=== PATIENT | female | born 1955 | race Caucasian/White ===

== ENCOUNTER 2017-02-09 16:21 | Emergency (ER) | payer BC, OTHER ==
--- NOTE | 2017-02-09 16:24 | PDOC ---
History of Present Illness - General History Source: Patient Exam Limitations: No Limitations - History of Present Illness Initial Comments: 02/09/17 17:15 The patient is a 61 year old female, with significant past medical history of irritable bowel syndrome, anxiety, and depression, who presents to the emergency room complaining of 1 day of palpitations, and diarrhea and lower abdominal cramping x 1 month. She explains that her mother 1 month ago and has been having an IBS flare up since the day after her . She has been experiencing multiple episodes of diarrhea each day and increased abdominal discomfort over the past couple of days. Her bundle helper prescribed lomotil and attributes the flare up to stress. She noticed the palpitations start this morning while laying out in the sun but was not sure if it was anxiety. Denies SOB, chest pain. Denies fever, chills, nausea, vomiting. Denies black, tarry, or blood in the stool. Denies urinary changes. Allergies: penicillins, sulfa, epinephrine PCP: Dr. Percy Herrera ([facility] ) <Ashley Valles - Last Filed: 02/09/17 17:15> <Sulma Delvalle - Last Filed: 02/09/17 18:19> - General Chief Complaint: Diarrhea Stated Complaint: DIARRHEA Time Seen by Provider: 02/09/17 16:24 Past History <Ashley Valles - Last Filed: 02/09/17 17:15> - Past Medical History GI Disorders: Yes (IBS) Liver Disease: Yes (ANX/DEP) - Immunization History Immunization Up to Date: Yes - Psycho/Social/Smoking Cessation Hx Anxiety: Yes Suicidal Ideation: No Smoking Status: Yes Smoking History: Former smoker Years of Tobacco Use: 40 Number of Cigarettes Smoked Daily: 0 Cigars Per Day: 0 <Sulma Delvalle - Last Filed: 02/09/17 18:19> - Past Medical History Allergies/Adverse Reactions: Allergies Allergy/AdvReac Type Severity Reaction Status Date / Time Penicillins Allergy Mild Hives Verified 02/09/17 16:23 Sulfa (Sulfonamide Allergy Mild Hives Verified 02/09/17 16:23 Antibiotics) [Sulfa(Sulfonamide Antibiotics)] epinephrine AdvReac Verified 02/09/17 16:58 Home Medications: Ambulatory Orders Alprazolam [Xanax] 0.5 mg PO PRN PRN 12/13/11 Escitalopram Oxalate [Lexapro] 20 mg PO DAILY 12/13/11 Rabeprazole Sodium [Aciphex] 20 mg PO BID 12/13/11 Diphenoxylate 2.5/Atropine.025 [Lomotil -] 1 combo PO BID 02/09/17 Fexofenadine HCl [Mony Allergy] 60 mg PO DAILY 02/09/17 Review of Systems - Review of Systems Able to Perform ROS?: Yes Comments:: 02/09/17 17:15 GENERAL/CONSTITUTIONAL: No fever or chills. No weakness. HEAD, EYES, EARS, NOSE AND THROAT: No change in vision. No ear pain or discharge. No sore throat. GASTROINTESTINAL: +diarrhea, lower abdominal cramping. No nausea, vomiting,or constipation. GENITOURINARY: No dysuria, frequency, or change in urination. CARDIOVASCULAR: +palpitations. No chest pain or shortness of breath. RESPIRATORY: No cough, wheezing, or hemoptysis. MUSCULOSKELETAL: No joint or muscle swelling or pain. No neck or back pain. SKIN: No rash NEUROLOGIC: No headache, vertigo, loss of consciousness, or change in strength/ sensation. ENDOCRINE: No increased thirst. No abnormal weight change. HEMATOLOGIC/LYMPHATIC: No anemia, easy bleeding, or history of blood clots. ALLERGIC/IMMUNOLOGIC: No hives or skin allergy. <Ashley Valles - Last Filed: 02/09/17 17:15> *Physical Exam - Vital Signs Last Vital Signs Temp Pulse Resp BP Pulse Ox 97.9 F 62 20 100/42 98 02/09/17 16:22 02/09/17 16:22 02/09/17 16:22 02/09/17 16:22 02/09/17 16:22 - Physical Exam Comments: 02/09/17 17:15 GENERAL: Awake, alert, and fully oriented, in no acute distress EYES: PERRLA, EOMI, sclera anicteric, conjunctiva clear LUNGS: Breath sounds equal, clear to auscultation bilaterally. No wheezes, and no crackles HEART: Regular rate and rhythm, normal S1 and S2, no murmurs, rubs or gallops ABDOMEN: +Mild diffuse tenderness to deep palpation; however, patient was easily distractible. Soft, normoactive bowel sounds. No guarding, no rebound. No masses EXTREMITIES: Normal range of motion, no edema. No clubbing or cyanosis. No cords, erythema, or tenderness NEUROLOGICAL: Cranial nerves II through XII grossly intact. Normal speech, normal gait SKIN: Warm, Dry, normal turgor, no rashes or lesions noted. <Ashley Valles - Last Filed: 02/09/17 17:15> ED Treatment Course - LABORATORY CBC & Chemistry Diagram: 02/09/17 17:06 02/09/17 17:06 <Sulma Delvalle - Last Filed: 02/09/17 18:19> Medical Decision Making - Medical Decision Making 02/09/17 18:13 Pt presents to the ED complaining of a three week history of diffuse abdominal pain and diarrhea. patient has a longstanding history of IBD, and has discussed these complaints several times with her GI doc, who feels that they are most likely caused by IBD. Labs checked to rule out electryolyte disturbance and are negative. EKG shows normal sinus rhythm. Will discharge home with follow up with her PMD and GI doctor. <Sulma Delvalle - Last Filed: 02/09/17 18:19> *DC/Admit/Observation/Transfer - Attestations Scribe Attestion: 02/09/17 17:16 Documentation prepared by BANG Owens, acting as medical leader for Sulma Delvalle MD. <Ashley Valles - Last Filed: 02/09/17 17:15> - Discharge Dispostion Admit: No <Sulma Delvalle - Last Filed: 02/09/17 18:19> Diagnosis at time of Disposition: Palpitations - Discharge Dispostion Disposition: HOME Condition at time of disposition: Good - Patient Instructions Printed Discharge Instructions: DI for Palpitations Additional Instructions: return to the ED for severe abdominal pain, bloody or black, tarry stools, severe nausea and vomiting, chest pain or shortness of breath.
[2017-02-09 16:52] VITALS: BP 100/42; PULSE 62; TEMP 97.9; BMI 18.1
[2017-02-09 17:54] LABS: BASOPHIL 1.2 % (0-2.0); EOSINOPHIL 4.7 % (0-4.5); MCH 33.4 pg (25.7-33.7); MCHC 33.1 g/dl (32.0-36.0); MEAN CELL VOLUME 100.9 fl (80-96); MEAN PLT VOLUME 7.7 fl (7.5-11.1); NEUTROPHILS 49.9 % (42.8-82.8); PLATELET COUNT 231 K/MM3 (134-434); RDW 12.8 % (11.6-15.6); WHITE BLOOD COUNT 6.3 K/mm3 (4.0-10.8)
[2017-02-09 17:55] LABS: ALBUMIN 3.6 g/dl (3.5-5.0); ALK PHOS 56 U/L (32-92); ANION GAP 7 (8-16); BILIRUBIN,TOTAL 0.5 mg/dl (0.2-1.0); CO2 28 mmol/L (22-28); CPK 126 IU/L (26-192); CREATININE 0.7 mg/dl (0.6-1.3); GLUCOSE,RANDOM 79 mg/dl (74-106); SGOT/AST 26 U/L (10-42); SGPT/ALT 35 U/L (10-40); TOT PROT 5.7 g/dl (6.4-8.3)
[2017-02-09 18:09] LABS: TROPONIN I (DFP) < 0.03 ng/ml (0.03-0.50)
--- NOTE | 2017-02-12 14:10 | EKG ---
Test Reason : Blood Pressure : / mmHG Vent. Rate : 059 BPM Atrial Rate : 059 BPM P-R Int : 144 ms QRS Dur : 070 ms QT Int : 428 ms P-R-T Axes : 079 074 064 degrees QTc Int : 423 ms POOR DATA QUALITY, INTERPRETATION MAY BE ADVERSELY AFFECTED SINUS BRADYCARDIA OTHERWISE NORMAL ECG WHEN COMPARED WITH ECG OF 25-JUN-2007 04:21, NO SIGNIFICANT CHANGE WAS FOUND REPEAT EKG IF CLINICALLY INDICATED Confirmed by DUKE DEAN MD ([id number] on 02/12/2017 2:09:54 PM Referred By: MD HANKINS Confirmed By:DUKE DEAN MD
== END 2017-02-09 18:28 | disposition home or self-care (01) ==
LOC: FER 16:21
DX: F41.8 Other specified anxiety disorders (principal); Z87.891 Personal history of nicotine dependence; K58.0 Irritable bowel syndrome with diarrhea
CPT/HCPCS: 36415; 80053; 84484; 85025; 93005; 93010; 99283-25

== ENCOUNTER 2018-02-11 16:01 | Emergency (ER) | payer BC, OTHER ==
--- NOTE | 2018-02-11 16:17 | PDOC ---
History of Present Illness - General Chief Complaint: Pain Stated Complaint: EPIGASTRIC BURNING Time Seen by Provider: 02/11/18 16:11 - History of Present Illness Initial Comments: 02/11/18 17:18 The patient is a 62 year old female with a history of Anxiety, IBS, GERD who presents for evaluation of epigastric abdominal pain. The patient reports acute onset of burning epigastric abdominal pain with radiation into her chest earlier today prompting her presentation to the ED for further evaluation. The patient notes that she saw her GI specialist 1 day ago and has follow up scheduled for a barium sallow study. She otherwise denies fevers, chills, SOB, chest pain, nausea, vomiting, or changes with urination or bowel movements. Past History - Past Medical History Allergies/Adverse Reactions: Allergies Allergy/AdvReac Type Severity Reaction Status Date / Time epinephrine Allergy Verified 02/11/18 16:04 Penicillins AdvReac Mild Hives Verified 02/11/18 16:13 Sulfa (Sulfonamide AdvReac Mild Hives Verified 02/11/18 16:13 Antibiotics) [Sulfa(Sulfonamide Antibiotics)] EGG WHITE Allergy Uncoded 02/11/18 16:04 Home Medications: Ambulatory Orders Alprazolam [Xanax] 0.5 mg PO PRN PRN 12/13/11 Escitalopram Oxalate [Lexapro] 20 mg PO DAILY 12/13/11 Rabeprazole Sodium [Aciphex] 20 mg PO BID 12/13/11 Diphenoxylate 2.5/Atropine.025 [Lomotil -] 1 combo PO BID 02/09/17 Fexofenadine HCl [Mony Allergy] 60 mg PO DAILY 02/09/17 GI Disorders: Yes (IBS) Liver Disease: Yes (ANX/DEP) - Immunization History Immunization Up to Date: Yes - Suicide/Smoking/Psychosocial Hx Smoking Status: Yes Smoking History: Former smoker Years of Tobacco Use: 40 Have you smoked in the past 12 months: Yes Number of Cigarettes Smoked Daily: 0 Cigars Per Day: 0 'Breaking Loose' booklet given: 02/09/17 Hx Alcohol Use: No Drug/Substance Use Hx: No Substance Use Type: None Review of Systems - Review of Systems Comments:: 02/11/18 17:30 Constitutional: No fevers, chills, fatigue, malaise HEENT: No Rhinorrhea, nasal congestion, visual changes Cardiovascular: No syncope, palpitations, lightheadedness Respiratory: No Cough, SOB, Hemoptysis, Gastrointestinal: Burning Abdominal pain. No Nausea, Vomiting, Constipation, Diarrhea, Melena Genitourinary: No Dysuria, Frequency, Urgency, Hesitancy, Hematuria, Flank pain Musculoskeletal: No Myalgia, arthralgia Skin: No rashes, itching, bruising, pallor Neurologic: No Headache, Dizziness, Numbness, Weakness, or Tingling Psychiatric: No Hallucinations. No SI or HI *Physical Exam - Physical Exam Comments: 02/11/18 17:31 General Appearance: Nourished. No Apparent Distress HEENT: No Pharyngeal Erythema, Tonsillar Exudate, Tonsillar Erythema Neck: No Cervical Lymphadenopathy Respiratory/Chest: Lungs Clear, Normal Breath Sounds. No Crackles, Rales, Rhonchi, Wheezing Cardiovascular: Regular Rhythm, Regular Rate. No Murmur, Gallops, Rubs Gastrointestinal/Abdominal: Normal Bowel Sounds, Soft. Epigastric tenderness to palpation on exam. No Guarding, Rebound, Musculoskeletal: No CVA Tenderness Extremity: Normal Capillary Refill Integumentary: Normal Color, Dry, Warm Neurologic: Fully Oriented, Alert, Normal Mood/Affect, Normal Response, Heart Score/ECG Review #1 ECG reviewed & interpreted by me at: 17:31 General ECG Interpretation: Sinus Rhythm, Normal Rate, Normal Intervals, No acute ischemic changes ED Treatment Course - LABORATORY CBC & Chemistry Diagram: 02/11/18 16:50 02/11/18 16:50 Medical Decision Making - Medical Decision Making 02/11/18 17:31 The patient is a 62 year old female with a history of Anxiety, IBS, GERD who presents for evaluation of epigastric abdominal pain. Differential includes but is not limited to: Gastritis, Pancreatitis, ACS, Infectious, Metabolic derangement. Given the patient's history and physical exam, it is likely her symptoms are due to a gastritis. We will obtain a cbc, cmp, troponin, lipase, ekg to evaluate further. We will treat her in the meantime with iv fluids and iv pepcid and continue to monitor and reassess while here in the ED. 02/11/18 18:13 CBC, cmp, troponin are unremarkable. The patient reports improvement in her symptoms and is requesting discharge. We are comfortable discharging the patient home at this time with GI follow up. We discussed the results, plan, and return precautions with the patient who voiced understanding and is agreeable with the plan. *DC/Admit/Observation/Transfer Diagnosis at time of Disposition: Abdominal pain Qualifiers: Abdominal location: epigastric Qualified Code(s): R10.13 - Epigastric pain - Discharge Dispostion Disposition: HOME Condition at time of disposition: Stable - Referrals Referrals: Brigitte Gray MD [Primary Care Provider] - - Patient Instructions Printed Discharge Instructions: DI for Gastritis Additional Instructions: Please return to the ER if you experience concerning or worsening symptoms including chest pain, fevers, or vomiting. Your lab results and EKG were normal here in the ER. It is likely your symptoms are due to GERD. You may use Maalox or Mylanta as needed at home to help manage your symptoms. Please call to schedule a follow up appointment with your primary care provider and GI specialist within 1 week to discuss your ER visit and further management of your symptoms. - Post Discharge Activity
[2018-02-11 16:18] VITALS: BP 110/50; PULSE 72; TEMP 98; BMI 18.3
--- NOTE | 2018-02-11 16:30 | PDOC ---
Attending Attestation - Resident Resident Name: Giovanni Henry - ED Attending Attestation I have performed the following: I have examined & evaluated the patient, The case was reviewed & discussed with the resident, I agree w/resident's findings & plan, Exceptions are as noted - HPI HPI: 02/11/18 17:43 Complains of epigastric burning sensation radiating to the lower chest, beginning this afternoon. Long history of GERD, cigarette smoking. Has had recent upper endoscopy and colonoscopy. 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 On AcipHex, recently lowered the dose to 1 daily. Had been on one twice a day. No nausea, diaphoresis, shortness of breath, lightheadedness/dizziness. No history of cardiac disease. No family history of [place]/ coronary artery disease. - Physicial Exam PE: 02/11/18 17:45 Vital signs are normal. Patient alert oriented 3 cheerful and cooperative appears to be in no real distress. Physical exam is entirely normal except for mild tenderness to deep palpation in the epigastrium. - Medical Decision Making 02/11/18 17:45 Impression: Exacerbation of GERD, dyspepsia. Rule out occult cardiac disease Plan: EKG and enzymes show no evidence of acute cardiac ischemia. In addition, the patient's symptoms do not appear to be cardiac in origin. She is improved with intravenous Pepcid. She is scheduled for GI follow-up next week. She was encouraged to stop smoking, supplement her AcipHex with Mylanta or Maalox, avoid alcohol, return to ER if symptoms worsen or additional symptoms develop. Fully ambulatory and in no significant pain or other distress upon discharge to follow-up as directed
[2018-02-11] MEDS ORDERED: SODIUM CHLORIDE 1,000 ML IV STA (16:31)
[2018-02-11] MEDS ORDERED: FAMOTIDINE 20 MG/50 ML IVPB 20 MG/50 ML MG IVPB ONE ×2 (16:45→16:56)
[2018-02-11 17:01] LABS: BASO % 0.8 % (0-2.0); EOS % 5.6 % (0-4.5); HEMATOCRIT 38.1 % (32.4-45.2); HEMOGLOBIN 12.6 GM/dl (10.7-15.3); LYMPH % 33.8 % (8-40); MCH 34.3 pg (25.7-33.7); MCHC 33.1 g/dl (32.0-36.0); MEAN CELL VOLUME 103.5 fl (80-96); MEAN PLT VOLUME 6.4 fl (7.5-11.1); MONO % 5.6 % (3.8-10.2); NEUT % 54.2 % (42.8-82.8); PLATELET COUNT 275 K/MM3 (134-434); RBC 3.68 M/mm3 (3.60-5.2); RDW 12.8 % (11.6-15.6); WHITE BLOOD COUNT 6.2 K/mm3 (4.0-10.8)
[2018-02-11 17:18] LABS: ALBUMIN 3.6 g/dl (3.5-5.0); ALK PHOS 61 U/L (32-92); ANION GAP 6 MMOL/L (8-16); BILIRUBIN,TOTAL 0.6 mg/dl (0.2-1.0); BLOOD UREA NITROGEN 17 mg/dl (7-18); CALCIUM 8.5 mg/dl (8.4-10.2); CHLORIDE 102 mmol/L (98-107); CO2 28 mmol/L (22-28); CREATININE 0.6 mg/dl (0.6-1.3); GLUCOSE,RANDOM 86 mg/dl (74-106); POTASSIUM 3.9 mmol/L (3.5-5.1); SGOT/AST 23 U/L (10-42); SGPT/ALT 30 U/L (10-40); SODIUM 136 mmol/L (136-145); TOT PROT 5.8 g/dl (6.4-8.3)
[2018-02-11 18:42] LABS: LIPASE 96 U/L (73-393)
--- NOTE | 2018-02-12 20:17 | EKG ---
Test Reason : Blood Pressure : / mmHG Vent. Rate : 064 BPM Atrial Rate : 064 BPM P-R Int : 146 ms QRS Dur : 066 ms QT Int : 420 ms P-R-T Axes : 079 072 065 degrees QTc Int : 433 ms NORMAL SINUS RHYTHM POSSIBLE LEFT ATRIAL ENLARGEMENT SEPTAL INFARCT , AGE UNDETERMINED ABNORMAL ECG WHEN COMPARED WITH ECG OF 09-FEB-2017 16:10, SEPTAL INFARCT IS NOW PRESENT Confirmed by MANOJ FOLEY, BONY ([id number]) on 02/12/2018 8:17:41 PM Referred By: DR HEATH Confirmed By:BONY ARANDA MD
== END 2018-02-11 18:13 | disposition home or self-care (01) ==
LOC: FER 16:01
PROC: 3E0337Z Introduction of Electrolytic and Water Balance Substance into Peripheral Vein, Percutaneous Approach (ICD-10-PCS; principal; 2018-02-11)
DX: R10.13 Epigastric pain (principal)
CPT/HCPCS: 36415; 80053; 82550; 83690; 84484; 85025; 93005; 99284-25; J7030

== ENCOUNTER 2021-01-29 13:45 | Emergency (ER) | payer OTHER, BC ==
[2021-01-29 14:03] VITALS: BP 122/40; PULSE 68; TEMP 98.1; BMI 17.7
[2021-01-29] MEDS ORDERED: PANTOPRAZOLE SODIUM 40 MG VIAL IVPUSH ONE (14:04)
[2021-01-29] MEDS ORDERED: PANTOPRAZOLE SODIUM 40 MG VIAL ONE (14:06)
[2021-01-29] MEDS ORDERED: MAG HYDROX/AL HYDROX/SIMETH 30 ML UNIT-DOSE CUP PO ONE (14:09)
[2021-01-29 15:09] LABS: BASO % 1.1 % (0-2.0); EOS % 4.3 % (0-4.5); HEMOGLOBIN 12.4 GM/dl (10.7-15.3); LYMPH % 42.2 % (8-40); MCH 34.1 pg (25.7-33.7); MCHC 32.8 g/dl (32.0-36.0); MEAN CELL VOLUME 103.9 fl (80-96); MEAN PLT VOLUME 6.6 fl (7.5-11.1); MONO % 6.2 % (3.8-10.2); NEUT % 46.2 % (42.8-82.8); PLATELET COUNT 321 10^3/uL (134-434); RBC 3.65 M/mm3 (3.60-5.2); WHITE BLOOD COUNT 5.1 K/mm3 (4.0-10.8)
[2021-01-29 15:11] LABS: ALBUMIN 3.9 g/dl (3.4-5.0); BILIRUBIN,TOTAL 0.4 mg/dl (0.2-1); CALCIUM 8.9 mg/dl (8.5-10); CREATININE 0.7 mg/dl (0.55-1.3); TOT PROT 6.3 g/dl (6.4-8.2)
[2021-01-29 15:15] LABS: ACTIVATED PTT 29.6 SECONDS (25.2-36.5)
[2021-01-29 15:19] LABS: INR 0.97 (0.82-1.09); PROTHROMBIN TIME (PATIENT) 10.9 SEC (10.2-13.0)
== END 2021-01-29 15:57 | disposition home or self-care (01) ==
LOC: FER 13:45 → SUPCPDRO 13:45 → FER 15:57
PROC: 3E033NZ Introduction of Analgesics, Hypnotics, Sedatives into Peripheral Vein, Percutaneous Approach (ICD-10-PCS; principal; 2021-01-29)
DX: K21.9 Gastro-esophageal reflux disease without esophagitis (principal); R19.4 Change in bowel habit
CPT/HCPCS: 36415; 80053; 82272; 83690; 85025; 85610; 85730; 99283-25

== ENCOUNTER 2022-01-20 11:22 | Emergency (ER) | payer OTHER, BC ==
[2022-01-20 11:50] VITALS: BP 113/59; PULSE 92; RESP 18; TEMP 98; BMI 16.6
== END 2022-01-20 12:38 | disposition home or self-care (01) ==
LOC: FER 11:22
DX: K21.9 Gastro-esophageal reflux disease without esophagitis (principal)
CPT/HCPCS: 0241U-QW; 99283-25

== ENCOUNTER → 2023-10-22 | Day surgery (SDC) | payer OTHER, BC | END | disposition home or self-care (01) | LOC: FMAMMOTONE 12:56 | PROVIDERS: ATTEND Family Medicine | PROC: 0HBV3ZX Excision of Bilateral Breast, Percutaneous Approach, Diagnostic (ICD-10-PCS; principal; 2023-10-22) | DX: Z53.8 Procedure and treatment not carried out for other reasons (principal); R92.0 Mammographic microcalcification found on diagnostic imaging of breast | CPT/HCPCS: 19081 ==

== ENCOUNTER → 2023-11-26 | Day surgery (SDC) | payer OTHER, BC | END | disposition home or self-care (01) | LOC: FRADUS-SUR 12:29 | PROVIDERS: ATTEND Surgery Surgical Oncology | PROC: BH02ZZZ Plain Radiography of Bilateral Breasts (ICD-10-PCS; principal; 2023-11-26) | DX: R92.0 Mammographic microcalcification found on diagnostic imaging of breast (principal) | CPT/HCPCS: 19281; A4648 ==

== ENCOUNTER 2023-12-04 04:08 | Day surgery (SDC) | payer OTHER, BC ==
[2023-11-27 11:41] VITALS: BMI 17.6
[2023-12-04] MEDS ORDERED: LIDOCAINE 1%/EPI 1:100000 (20 ML MULTI DOSE VIAL) ONE (12:18)
[2023-12-04] MEDS ORDERED: LIDOCAINE HCL 1%, 10 MG/ML (20ML VIAL) ONE (12:35)
[2023-12-04] MEDS ORDERED: MIDAZOLAM HCL 2 MG/2 ML SINGLE DOSE VIAL ONE (13:00)
[2023-12-04] MEDS ORDERED: SUCCINYLCHOLINE CHLORIDE 200 MG/10 ML SYRINGE ONE (13:00)
[2023-12-04] MEDS ORDERED: PROPOFOL 40 ML ONE (13:00)
[2023-12-04] MEDS ORDERED: FENTANYL CITRATE/PF 50 MCG/ML VIAL ONE ×2 (13:00→13:23)
[2023-12-04] MEDS: ceFAZolin SODIUM 1 GM VIAL IVPB ONE (13:01)
[2023-12-04] MEDS ORDERED: ONDANSETRON 4 MG/2 ML VIAL ONE (13:15)
[2023-12-04] MEDS ORDERED: DEXAMETHASONE SOD PHOSPHATE 4 MG/1 ML VIAL ONE (13:15)
[2023-12-04] MEDS ORDERED: BUPIVACAINE HCL/PF 0.25% (2.5MG/ML) 10 ML VIAL ONE (13:39)
[2023-12-04] MEDS: BUPIVACAINE HCL/PF 0.25% (2.5MG/ML) 10 ML VIAL IJ ONE ×2 (13:40)
[2023-12-04] MEDS ORDERED: LACTATED RINGERS SOLUTION 1,000 ML IV SCH (13:45)
[2023-12-04] MEDS ORDERED: KETOROLAC TROMETHAMINE 30 MG/1 ML VIAL ONE (13:57)
[2023-12-04] MEDS: ACETAMINOPHEN 500 MG TABLET (FP) PO ONE (14:42)
[2023-12-04 16:18] VITALS: TEMP 98
[2023-12-04 16:53] VITALS: BP 119/55; PULSE 75; RESP 18
== END 2023-12-04 17:01 | disposition home or self-care (01) ==
LOC: JASU-SURG 04:08
PROVIDERS: ATTEND Surgery Surgical Oncology
PROC: 0H9V3ZX Drainage of Bilateral Breast, Percutaneous Approach, Diagnostic (ICD-10-PCS; principal; 2023-12-04 13:30)
DX: N60.12 Diffuse cystic mastopathy of left breast (principal); N60.11 Diffuse cystic mastopathy of right breast; N60.22 Fibroadenosis of left breast; N60.82 Other benign mammary dysplasias of left breast; N60.81 Other benign mammary dysplasias of right breast
CPT/HCPCS: 76098-TC-FY; 88307-TC; 94760